=== PATIENT | male | born 1950 | race Caucasian/White ===

== ENCOUNTER 2018-04-08 12:23 | Inpatient (IN) | payer MEDICARE, OTHER ==
[~2018-04-08] VITALS: Ht 180.3 cm; Wt 68.7 kg
[~2018-04-08 12:23] MED LIST: ATEN25TA PO; DICY10CA3 PO; FOLI-17 PO; GABA300C10 PO; HYDR50CA2 PO; LOPE2CAP PO; METH500T7 PO; MONT10TA9 PO; MULT-108 PO; NICO-487 TD; ONDA4TAB12 PO; PANT40TA5 PO; PRAZ2CAP2 PO; PRED20TA PO; PROM12.55 PO; QUET25TA PO; SERT100T5 PO; THIA100T10 PO; TRAM50TA2 PO; TRAZ-137 PO
[2018-04-08 12:49] LABS: MEAN CORPUSCULAR HEMOGLOBIN 36.1 pg (27.5-34.5); MEAN CORPUSCULAR HGB CONC 34.4 g/dL (33.2-36.2); MEAN CORPUSCULAR VOLUME 104.8 fL (81-97); MEAN PLATELET VOLUME 6.9 fL (7.4-10.4); PLATELET COUNT 351 x10^3/uL (130-400); RED BLOOD COUNT 3.27 x10^6/uL (4.38-5.82); RED CELL DISTRIBUTION WIDTH 13.2 % (9.4-14.8)
[2018-04-08 13:02] LABS: ALBUMIN 3.4 g/dL (3.4-5.0); ANION GAP 4 mmol/L (5-15); CALCIUM 8.3 mg/dL (8.5-10.1); CHLORIDE 101 mmol/L (98-107); SALICYLATE LEVEL 2.7 mg/dL (2.8-20.0)
[2018-04-08 13:03] LABS: INTERNATIONAL NORMALIZED RATIO 0.87 (0.93-1.1); PROTHROMBIN TIME 9.1 Seconds (9.6-11.5)
[2018-04-08 13:04] LABS: BASOPHILS # (AUTO) 0.02 x10^3/uL (0-0.1); BASOPHILS % (AUTO) 0 % (0-1); EOSINOPHILS # (AUTO) 0.06 x10^3/uL (0-0.4); EOSINOPHILS % (AUTO) 0 % (1-7); LYMPHOCYTES # (AUTO) 1.69 x10^3/uL (1-3.4); LYMPHOCYTES % (AUTO) 9 % (22-44); MD SCAN; MONOCYTES # (AUTO) 0.62 x10^3/uL (0.2-0.8); MONOCYTES % (AUTO) 3 % (2-9); NEUTROPHILS # (AUTO) 16.18 x10^3/uL (1.8-6.8); NEUTROPHILS % (AUTO) 87 % (42-75)
[2018-04-08 13:08] LABS: ALANINE AMINOTRANSFERASE 23 U/L (12-78); ALKALINE PHOSPHATASE 105 U/L (45-117); BILIRUBIN,TOTAL 0.4 mg/dL (0.2-1.0); TOTAL PROTEIN 6.8 g/dL (6.4-8.2); TROPONIN I < 0.015 ng/mL (0.000-0.045)
[2018-04-08 13:13] LABS: ACETAMINOPHEN 2 mcg/mL (10-30)
[2018-04-08] MEDS ORDERED: SODIUM CHLORIDE FLUSH 10ML SYR IVF ONE (14:00)
[2018-04-08] MEDS ORDERED: CEFTRIAXONE 1,000 MG in SODIUM CHLORIDE 0.9% 50 ML IVPB ONE (14:00)
[2018-04-08] MEDS ORDERED: AZITHROMYCIN 500 MG in SODIUM CHLORIDE 0.9% 250 ML IVPB ONE (14:00)
[2018-04-08] MEDS ORDERED: CEFTRIAXONE PMX 1GM/50ML 50 ML ONE (14:20)
[2018-04-08] MEDS ORDERED: SODIUM CHLORIDE FLUSH 10ML SYR IVF PRN (15:00)
[2018-04-08] MEDS ORDERED: LORazepam 1MG TABLET PO PRN ×3 (15:00)
[2018-04-08] MEDS: POTASSIUM CHLORIDE 20 MEQ, MAGNESIUM SULFATE 1 GM, THIAMINE 200 MG, FOLIC ACID 1 MG, MV... IV SCH ×2 (15:00→22:36)
[2018-04-08] MEDS ORDERED: LORazepam 2 MG/ML, 1ML IV PRN ×4 (15:00)
[2018-04-08] MEDS: HEPARIN 5,000 UNITS/ML, 1ML SQ SCH ×2 (15:26→22:36)
[2018-04-08] MEDS: AMPICILLIN/SULBACTAM 3 GM in SODIUM CHLORIDE 0.9% 100 ML IV SCH ×2 (15:26→21:29)
[2018-04-08] MEDS: NICOTINE 14MG/24 HR PATCH.TD24 TD SCH (15:27)
[2018-04-08] MEDS ORDERED: SODIUM CHLORIDE 0.9% 1,000 ML IV SCH (15:30)
[2018-04-08] MEDS ORDERED: QUETIAPINE 25MG TABLET PO PRN (15:30)
[2018-04-08] MEDS ORDERED: LABETALOL 5MG/ML, 20ML IV PRN (15:30)
[2018-04-08] MEDS: DICYCLOMINE 10 MG CAPSULE PO SCH ×2 (17:39→19:58)
[2018-04-08] MEDS: HYDROXYZINE PAMOATE 50MG CAP PO SCH ×2 (17:39→19:58)
[2018-04-08 19:22] VITALS: BP 138/76
[2018-04-08] MEDS: ATORVASTATIN 40 MG TABLET PO SCH (19:58)
[2018-04-08] MEDS: PANTOPROZOLE 40MG TABLET PO SCH (19:58)
[2018-04-08] MEDS: DOXYCYCLINE 100 MG in DEXTROSE 5% 250 ML IV SCH (19:58)
[2018-04-08] MEDS: ATENOLOL 25 MG TABLET PO SCH (19:58)
[2018-04-08 21:18] VITALS: BP 126/75
[2018-04-09] VITALS (7 sets, daily range): BP systolic 122–163; BP diastolic 73–79
[2018-04-09 02:32] LABS: AMPHETAMINE SCREEN, URINE Negative (Negative); BARBITURATE SCREEN, URINE Negative (Negative); BENZODIAZEPINE SCREEN, URINE Negative (Negative); CANNABINOID SCREEN, URINE Positive (Negative); COCAINE SCREEN, URINE Negative (Negative); METHADONE SCREEN, URINE Negative (Negative); OPIATE SCREEN, URINE Negative (Negative)
[2018-04-09] MEDS: AMPICILLIN/SULBACTAM 3 GM in SODIUM CHLORIDE 0.9% 100 ML IV SCH ×4 (03:23→20:31)
[2018-04-09 06:07] LABS: FOLATE LEVEL > 20.0 ng/mL (3.1-17.5)
[2018-04-09 07:16] LABS: MEAN CORPUSCULAR HEMOGLOBIN 35.2 pg (27.5-34.5); MEAN CORPUSCULAR HGB CONC 33.9 g/dL (33.2-36.2); MEAN CORPUSCULAR VOLUME 103.6 fL (81-97); MEAN PLATELET VOLUME 7.8 fL (7.4-10.4); PLATELET COUNT 317 x10^3/uL (130-400); RED BLOOD COUNT 3.22 x10^6/uL (4.38-5.82)
[2018-04-09 07:25] LABS: ANION GAP 9 mmol/L (5-15); CALCIUM 8.3 mg/dL (8.5-10.1); CHLORIDE 100 mmol/L (98-107); CREATININE 0.77 mg/dL (0.7-1.3)
[2018-04-09 07:26] LABS: ALBUMIN 3.1 g/dL (3.4-5.0); BASOPHILS # (AUTO) 0.02 x10^3/uL (0-0.1); BASOPHILS % (AUTO) 0 % (0-1); EOSINOPHILS # (AUTO) 0.11 x10^3/uL (0-0.4); EOSINOPHILS % (AUTO) 1 % (1-7); LYMPHOCYTES # (AUTO) 2.17 x10^3/uL (1-3.4); LYMPHOCYTES % (AUTO) 17 % (22-44); MD NO; MONOCYTES # (AUTO) 0.35 x10^3/uL (0.2-0.8); MONOCYTES % (AUTO) 3 % (2-9); NEUTROPHILS # (AUTO) 10.12 x10^3/uL (1.8-6.8); NEUTROPHILS % (AUTO) 79 % (42-75)
[2018-04-09] MEDS: DOXYCYCLINE 100 MG in DEXTROSE 5% 250 ML IV SCH ×2 (08:00→19:25)
[2018-04-09] MEDS: HEPARIN 5,000 UNITS/ML, 1ML SQ SCH ×3 (08:37→22:28)
[2018-04-09] MEDS: PANTOPROZOLE 40MG TABLET PO SCH ×2 (08:38→20:26)
[2018-04-09] MEDS: DICYCLOMINE 10 MG CAPSULE PO SCH ×3 (08:38→20:25)
[2018-04-09] MEDS: HYDROXYZINE PAMOATE 50MG CAP PO SCH ×3 (08:39→20:26)
[2018-04-09] MEDS: SERTRALINE 100MG TABLET PO SCH (08:39)
[2018-04-09] MEDS: ATENOLOL 25 MG TABLET PO SCH (08:39)
[2018-04-09] MEDS ORDERED: ASPIRIN 81 MG TABLET CHEW PO/NG SCH (09:00)
[2018-04-09] MEDS: SODIUM CHLORIDE 0.9% 1,000 ML IV SCH (15:15)
[2018-04-09] MEDS: NICOTINE 14MG/24 HR PATCH.TD24 TD SCH (15:15)
[2018-04-09] MEDS ORDERED: VANCOMYCIN PER PHARMACY MC PRN (16:00)
[2018-04-09] MEDS ORDERED: PHARMACOKINETIC MONITORING MC PRN (16:30)
[2018-04-09] MEDS ORDERED: PHARMACOKINETIC CONSULTATION MC ONE (16:30)
[2018-04-09] MEDS: VANCOMYCIN 1,400 MG in SODIUM CHLORIDE 0.9% 250 ML IV SCH (17:03)
[2018-04-09] MEDS: ATORVASTATIN 40 MG TABLET PO SCH (20:25)
[2018-04-09] MEDS: POTASSIUM CHLORIDE 20 MEQ, MAGNESIUM SULFATE 1 GM, THIAMINE 200 MG, FOLIC ACID 1 MG, MV... IV SCH (22:28)
[2018-04-10 02:12] VITALS: BP 152/64
[2018-04-10] MEDS: AMPICILLIN/SULBACTAM 3 GM in SODIUM CHLORIDE 0.9% 100 ML IV SCH ×4 (03:24→22:30)
[2018-04-10 04:49] LABS: BASOPHILS # (AUTO) 0.13 x10^3/uL (0-0.1); BASOPHILS % (AUTO) 1 % (0-1); EOSINOPHILS # (AUTO) 0.21 x10^3/uL (0-0.4); EOSINOPHILS % (AUTO) 2 % (1-7); LYMPHOCYTES % (AUTO) 20 % (22-44); MD NO; MEAN CORPUSCULAR HEMOGLOBIN 36.1 pg (27.5-34.5); MEAN CORPUSCULAR HGB CONC 34.7 g/dL (33.2-36.2); MEAN CORPUSCULAR VOLUME 104.2 fL (81-97); MEAN PLATELET VOLUME 7.4 fL (7.4-10.4); MONOCYTES # (AUTO) 0.45 x10^3/uL (0.2-0.8); MONOCYTES % (AUTO) 5 % (2-9); NEUTROPHILS # (AUTO) 7.06 x10^3/uL (1.8-6.8); NEUTROPHILS % (AUTO) 73 % (42-75); PLATELET COUNT 318 x10^3/uL (130-400); RED BLOOD COUNT 3.07 x10^6/uL (4.38-5.82); RED CELL DISTRIBUTION WIDTH 12.8 % (9.4-14.8)
[2018-04-10 04:54] LABS: ALBUMIN 2.9 g/dL (3.4-5.0); ANION GAP 9 mmol/L (5-15); CALCIUM 8.3 mg/dL (8.5-10.1); CHLORIDE 101 mmol/L (98-107)
[2018-04-10 04:58] LABS: ALANINE AMINOTRANSFERASE 18 U/L (12-78); ALKALINE PHOSPHATASE 81 U/L (45-117); BILIRUBIN,TOTAL 0.5 mg/dL (0.2-1.0); CREATININE 0.66 mg/dL (0.7-1.3); TOTAL PROTEIN 5.9 g/dL (6.4-8.2)
[2018-04-10 06:41] VITALS: BP 155/67
[2018-04-10] MEDS: DOXYCYCLINE 100 MG in DEXTROSE 5% 250 ML IV SCH ×2 (08:28→20:00)
[2018-04-10] MEDS: HEPARIN 5,000 UNITS/ML, 1ML SQ SCH ×2 (08:29→17:03)
[2018-04-10] MEDS: SERTRALINE 100MG TABLET PO SCH (08:30)
[2018-04-10] MEDS: PANTOPROZOLE 40MG TABLET PO SCH ×2 (08:30→20:57)
[2018-04-10] MEDS: CLOPIDOGREL 75 MG TABLET PO SCH (08:31)
[2018-04-10] MEDS: DICYCLOMINE 10 MG CAPSULE PO SCH ×3 (08:31→20:58)
[2018-04-10] MEDS: HYDROXYZINE PAMOATE 50MG CAP PO SCH ×3 (08:31→20:58)
[2018-04-10] MEDS ORDERED: ASPIRIN 81 MG TABLET EC PO SCH (09:00)
[2018-04-10] MEDS: NICOTINE 21 MG/24 HR PATCH.TD24 TD SCH (11:18)
[2018-04-10] MEDS: VANCOMYCIN 1,400 MG in SODIUM CHLORIDE 0.9% 250 ML IV SCH (11:23)
[2018-04-10] MEDS: SODIUM CHLORIDE 0.9% 1,000 ML IV SCH (11:23)
[2018-04-10 12:12] VITALS: BP 159/68
[2018-04-10] MEDS ORDERED: ACETAMINOPHEN 325 MG TABLET ONE ×2 (16:55→21:23)
[2018-04-10] MEDS ORDERED: hydrALAzine 20 MG/ML, 1ML IV PRN (17:00)
[2018-04-10] MEDS ORDERED: ACETAMINOPHEN 325 MG TABLET PO PRN (17:00)
[2018-04-10] MEDS: ATENOLOL 25 MG TABLET PO SCH (17:02)
[2018-04-10] MEDS: LORazepam 0.5MG TABLET PO PRN ×2 (18:04→23:59)
[2018-04-10 20:04] VITALS: BP 150/65
[2018-04-10] MEDS: ATORVASTATIN 40 MG TABLET PO SCH (20:57)
[2018-04-10] MEDS: ACETAMINOPHEN 325 MG TABLET PO PRN (21:25)
[2018-04-11] MEDS: HEPARIN 5,000 UNITS/ML, 1ML SQ SCH ×3 (00:01→16:19)
[2018-04-11] MEDS: POTASSIUM CHLORIDE 20 MEQ, MAGNESIUM SULFATE 1 GM, THIAMINE 200 MG, FOLIC ACID 1 MG, MV... IV SCH (00:02)
[2018-04-11 01:26] VITALS: BP 152/70
[2018-04-11] MEDS: AMPICILLIN/SULBACTAM 3 GM in SODIUM CHLORIDE 0.9% 100 ML IV SCH ×3 (04:30→18:14)
[2018-04-11] MEDS: LORazepam 0.5MG TABLET PO PRN (05:22)
[2018-04-11] MEDS: ATENOLOL 25 MG TABLET PO SCH (05:22)
[2018-04-11] MEDS: VANCOMYCIN 1,400 MG in SODIUM CHLORIDE 0.9% 250 ML IV SCH (05:23)
[2018-04-11 06:00] LABS: BASOPHILS # (AUTO) 0.03 x10^3/uL (0-0.1); BASOPHILS % (AUTO) 0 % (0-1); EOSINOPHILS # (AUTO) 0.29 x10^3/uL (0-0.4); EOSINOPHILS % (AUTO) 3 % (1-7); LYMPHOCYTES # (AUTO) 1.73 x10^3/uL (1-3.4); LYMPHOCYTES % (AUTO) 20 % (22-44); MD NO; MEAN CORPUSCULAR HEMOGLOBIN 36.1 pg (27.5-34.5); MEAN CORPUSCULAR HGB CONC 34.8 g/dL (33.2-36.2); MEAN CORPUSCULAR VOLUME 103.9 fL (81-97); MEAN PLATELET VOLUME 7.8 fL (7.4-10.4); MONOCYTES # (AUTO) 0.51 x10^3/uL (0.2-0.8); MONOCYTES % (AUTO) 6 % (2-9); NEUTROPHILS # (AUTO) 6.02 x10^3/uL (1.8-6.8); NEUTROPHILS % (AUTO) 70 % (42-75); PLATELET COUNT 316 x10^3/uL (130-400); RED BLOOD COUNT 3.05 x10^6/uL (4.38-5.82); RED CELL DISTRIBUTION WIDTH 12.7 % (9.4-14.8)
[2018-04-11 06:07] LABS: ALBUMIN 2.8 g/dL (3.4-5.0); ANION GAP 11 mmol/L (5-15); CHLORIDE 99 mmol/L (98-107); CREATININE 0.64 mg/dL (0.7-1.3)
[2018-04-11 07:12] VITALS: BP 148/68
[2018-04-11] MEDS ORDERED: NICOTINE GUM 2 MG BC PRN (08:30)
[2018-04-11] MEDS: SODIUM CHLORIDE 0.9% 1,000 ML IV SCH (08:30)
[2018-04-11] MEDS: DOXYCYCLINE 100 MG in DEXTROSE 5% 250 ML IV SCH ×2 (08:37→20:50)
[2018-04-11] MEDS: PANTOPROZOLE 40MG TABLET PO SCH ×2 (08:38→20:43)
[2018-04-11] MEDS: CLOPIDOGREL 75 MG TABLET PO SCH (08:38)
[2018-04-11] MEDS: DICYCLOMINE 10 MG CAPSULE PO SCH ×3 (08:38→20:44)
[2018-04-11] MEDS: HYDROXYZINE PAMOATE 50MG CAP PO SCH ×3 (08:38→20:43)
[2018-04-11] MEDS: SERTRALINE 100MG TABLET PO SCH (08:38)
[2018-04-11] MEDS: NICOTINE 21 MG/24 HR PATCH.TD24 TD SCH (08:39)
[2018-04-11 12:34] VITALS: BP 142/76
[2018-04-11] MEDS: ACETAMINOPHEN 325 MG TABLET PO PRN ×2 (16:20→20:50)
[2018-04-11 20:01] VITALS: BP 158/73
[2018-04-11] MEDS: ATORVASTATIN 40 MG TABLET PO SCH (20:44)
[2018-04-12] MEDS: HEPARIN 5,000 UNITS/ML, 1ML SQ SCH ×3 (00:31→15:51)
[2018-04-12] MEDS: LORazepam 0.5MG TABLET PO PRN (00:39)
[2018-04-12] MEDS: AMPICILLIN/SULBACTAM 3 GM in SODIUM CHLORIDE 0.9% 100 ML IV SCH ×4 (00:40→17:06)
[2018-04-12 02:34] VITALS: BP 159/74
[2018-04-12 05:52] LABS: ALBUMIN 2.9 g/dL (3.4-5.0); ANION GAP 7 mmol/L (5-15); CALCIUM 8.3 mg/dL (8.5-10.1); CHLORIDE 98 mmol/L (98-107); CREATININE 0.75 mg/dL (0.7-1.3)
[2018-04-12 05:53] LABS: BASOPHILS # (AUTO) 0.03 x10^3/uL (0-0.1); BASOPHILS % (AUTO) 0 % (0-1); EOSINOPHILS # (AUTO) 0.33 x10^3/uL (0-0.4); EOSINOPHILS % (AUTO) 4 % (1-7); LYMPHOCYTES # (AUTO) 2.47 x10^3/uL (1-3.4); LYMPHOCYTES % (AUTO) 31 % (22-44); MD NO; MEAN CORPUSCULAR HEMOGLOBIN 34.1 pg (27.5-34.5); MEAN CORPUSCULAR HGB CONC 33.2 g/dL (33.2-36.2); MEAN CORPUSCULAR VOLUME 102.9 fL (81-97); MEAN PLATELET VOLUME 7.7 fL (7.4-10.4); MONOCYTES # (AUTO) 0.55 x10^3/uL (0.2-0.8); MONOCYTES % (AUTO) 7 % (2-9); NEUTROPHILS % (AUTO) 58 % (42-75); PLATELET COUNT 321 x10^3/uL (130-400); RED CELL DISTRIBUTION WIDTH 12.4 % (9.4-14.8)
[2018-04-12] MEDS ORDERED: MAGNESIUM SULFATE 3 GM in SODIUM CHLORIDE 0.9% 100 ML IV ONE (06:30)
[2018-04-12] MEDS: ACETAMINOPHEN 325 MG TABLET PO PRN ×2 (06:41→15:04)
[2018-04-12 06:59] VITALS: BP 163/78
[2018-04-12] MEDS: CLOPIDOGREL 75 MG TABLET PO SCH (08:16)
[2018-04-12] MEDS: NICOTINE 21 MG/24 HR PATCH.TD24 TD SCH (08:17)
[2018-04-12] MEDS: DICYCLOMINE 10 MG CAPSULE PO SCH ×2 (08:17→15:51)
[2018-04-12] MEDS: PANTOPROZOLE 40MG TABLET PO SCH (08:17)
[2018-04-12] MEDS: HYDROXYZINE PAMOATE 50MG CAP PO SCH ×2 (08:17→15:51)
[2018-04-12] MEDS: SERTRALINE 100MG TABLET PO SCH (08:17)
[2018-04-12] MEDS ORDERED: LISINOPRIL 10 MG TABLET PO SCH (09:00)
[2018-04-12] MEDS: DOXYCYCLINE 100 MG in DEXTROSE 5% 250 ML IV SCH (10:12)
[2018-04-12 12:00] VITALS: BP 151/75
[2018-04-12] MEDS ORDERED: LIDOCAINE/PF 1%, 30ML ONE (13:58)
[2018-04-12] MEDS ORDERED: LISI-167 PO (17:24)
[2018-04-12] MEDS ORDERED: AMOX1TAB64 PO (17:24)
[2018-04-12] MEDS ORDERED: ATOR40TA78 PO (17:24)
[2018-04-12] MEDS ORDERED: CLOP75TA PO (17:24)
[2018-04-12] MEDS ORDERED: L.AC1CAP6 PO (17:24)
== END 2018-04-12 18:54 | DRG 853 ==
LOC: ED 13:05 → EDIP 13:50 → 4NOR 14:59 → 4EST 15:02 → 4WST 04-12 11:51
PROVIDERS: ADMIT Hospitalist; ATTEND Hospitalist
PROC: 0JH632Z Insertion of Monitoring Device into Chest Subcutaneous Tissue and Fascia, Percutaneous Approach (ICD-10-PCS; principal; 2018-04-12)
DX: A41.9 Sepsis, unspecified organism (principal); I63.9 Cerebral infarction, unspecified; J18.9 Pneumonia, unspecified organism; J44.0 Chronic obstructive pulmonary disease with (acute) lower respiratory infection; E87.1 Hypo-osmolality and hyponatremia; G81.94 Hemiplegia, unspecified affecting left nondominant side; D75.89 Other specified diseases of blood and blood-forming organs; E88.09 Other disorders of plasma-protein metabolism, not elsewhere classified; F10.10 Alcohol abuse, uncomplicated; F17.210 Nicotine dependence, cigarettes, uncomplicated; F43.10 Post-traumatic stress disorder, unspecified; F12.10 Cannabis abuse, uncomplicated; I10 Essential (primary) hypertension; F41.8 Other specified anxiety disorders; I49.9 Cardiac arrhythmia, unspecified; Z71.6 Tobacco abuse counseling; Z86.73 Personal history of transient ischemic attack (TIA), and cerebral infarction without residual deficits; Z98.1 Arthrodesis status
CPT/HCPCS: 33282; 36415; 70450; 70551; 71045; 80048; 80053; 80307; 80329; 82040; 82607; 82746; 82962; 83735; 84145; 84443; 84484; 85025; 85610; 85730; 87040; 87070; 87205; 93005; 93306; 93880; 96374; 99285; C1764; G0378; J0295; J0696; J1644; J3370; J3411; J3475; J3480; J3490; J7060; 92523-GN; G0480; J2060; J7030; J7050